=== PATIENT | female | born 1955 | race Two or more races ===

== ENCOUNTER 2017-11-14 21:20 | Inpatient (IN) | payer OTHER ==
[~2017-11-14] VITALS: Ht 165.1 cm; Wt 56.8 kg
--- NOTE | 2017-11-14 21:42 | NUR ---
BIB [facility] FROM [facility] C/C GROUND LEVEL SLIP AND FALL. PT GOT UP FROM SITTING POSITION TO GO TO BATHROOM AND FELL. NO KO. PT AA/OX4 DROWSY. "I REMEMBER FALLING AND BEING HELPED UP." SWELLING ,BRUISING, BLEEDING TO NOSE. PAIN TO LT WRIST AND LT KNEE. MINOR ABRASIONS TO BILATERAL KNEES. CIRCULATION, MOTOR, AND SENSATION PRESENT X4. NO S/S OF SOB. NAD. VSS. AWAITING MD ORDERS.
--- NOTE | 2017-11-14 21:51 | NUR ---
XRAY AT BEDSIDE
--- NOTE | 2017-11-14 22:10 | NUR ---
PT BROUGHT TO CT
[2017-11-14] MEDS ORDERED: IV NS 0.9% 500 ML BAG IV ONE (22:30)
[2017-11-14 22:44] LABS: BASOPHILS # (AUTO) 0.1 /CMM (0.0-0.2); EOSINOPHILS % (AUTO) 1.3 % (0.0-6.0); HEMATOCRIT 38 % (33-45); HEMOGLOBIN 12.9 g/dL (11.5-14.8); LYMPHOCYTES # (AUTO) 2.2 /CMM (0.8-4.8); LYMPHOCYTES % (AUTO) 25.5 % (20.0-44.0); MEAN CORPUSCULAR HEMOGLOBIN 30 PG (26.0-33.0); MEAN CORPUSCULAR HGB CONC 34 g/dl (31.0-36.0); MEAN CORPUSCULAR VOLUME 89 fL (82-100); MONOCYTES # (AUTO) 0.3 /CMM (0.1-1.30); NEUTROPHILS # (AUTO) 5.8 /CMM (1.8-8.9); NEUTROPHILS % (AUTO) 68.2 % (43.0-81.0); PLATELET COUNT (AUTO) 293 /CMM (150-450); RDW COEFFICIENT OF VARIATION 13.8 (11.5-15.0); RED BLOOD CELL COUNT(AUTO) 4.32 MIL/uL (4.0-5.2); WHITE BLOOD COUNT (AUTO) 8.5 K/uL (4.3-11.0)
[2017-11-14 22:50] LABS: INR 0.88 (0.85-1.15)
[2017-11-14 22:55] LABS: CALCIUM, SERUM 8.8 mg/dL (8.5-10.1); CARBON DIOXIDE 28 mmol/L (21-32); CHLORIDE 105 mmol/L (98-107); CREATININE 0.8 mg/dL (0.6-1.3); GLUCOSE 87 mg/dL (74-106); POTASSIUM 3.8 mmol/L (3.5-5.1); SODIUM SERUM 141 mmol/L (136-145); UREA NITROGEN, BLOOD 24 mg/dL (7-18)
[2017-11-14 23:01] LABS: ALANINE AMINOTRANSFERASE 30 U/L (12-78); ALBUMIN 3.4 g/dL (3.4-5.0); ALKALINE PHOSPHATASE 82 U/L (46-116); ASPARTATE AMINOTRANSFERASE 19 U/L (15-37); BILIRUBIN,DIRECT 0.1 mg/dL (0.0-0.2); BILIRUBIN,TOTAL 0.3 mg/dL (0.2-1.0); TOTAL PROTEIN, SERUM 6.7 g/dL (6.4-8.2)
[2017-11-14 23:03] LABS: TROPONIN I < 0.017 ng/mL (0.00-0.056)
--- NOTE | 2017-11-14 23:06 | NUR ---
PAGED BARRY LISA
--- NOTE | 2017-11-14 23:48 | NUR ---
CALLED NURSE SUP FOR TELE BED
[2017-11-15] MEDS ORDERED: HYDROMORPHONE 1 MG/1 ML DISP.SYRIN IV ONE
--- NOTE | 2017-11-15 00:03 | NUR ---
REPORT GIVEN TO ROLAND CALDERA
[2017-11-15] MEDS ORDERED: HYDROMORPHONE INJ 2 MG/ML DISP.SYRIN ONE (00:04)
--- NOTE | 2017-11-15 00:11 | NUR ---
PT TRANSPORTED WITH STABLE CONDITION. NAD. GONZALEZ.
[2017-11-15 00:40] VITALS: BP 118/68
[2017-11-15] MEDS ORDERED: Z GUARD REMEDY 2 OZ OINT TP PRN (01:00)
[2017-11-15] MEDS ORDERED: MAGNESIUM HYDROXIDE 30 ML UDC PO PRN (01:00)
[2017-11-15] MEDS ORDERED: ONDANSETRON HCL/PF 4 MG/2 ML VIAL IVP PRN (01:00)
[2017-11-15] MEDS ORDERED: HYDROCODONE/APAP 5/325MG 1 EACH TABLET PO PRN (01:00)
[2017-11-15] MEDS ORDERED: MORPHINE SULFATE INJ 2 MG/ML DISP.SYRIN IV PRN (01:00)
[2017-11-15] MEDS ORDERED: ACETAMINOPHEN 325 MG TABLET PO PRN (01:00)
[2017-11-15] MEDS ORDERED: ZOLPIDEM TARTRATE 5 MG TABLET PO PRN (01:00)
[2017-11-15] MEDS: IV NS 0.9% 1,000 ML IV PRN ×2 (01:27→21:35)
[2017-11-15 04:00] VITALS: BP 90/62
[2017-11-15 06:23] LABS: BASOPHILS # (AUTO) 0.1 /CMM (0.0-0.2); BASOPHILS % (AUTO) 0.7 % (0.0-2.0); EOSINOPHILS % (AUTO) 1.7 % (0.0-6.0); HEMATOCRIT 35 % (33-45); LYMPHOCYTES # (AUTO) 2.5 /CMM (0.8-4.8); LYMPHOCYTES % (AUTO) 32.4 % (20.0-44.0); MEAN CORPUSCULAR HEMOGLOBIN 31 PG (26.0-33.0); MEAN CORPUSCULAR HGB CONC 34 g/dl (31.0-36.0); MEAN CORPUSCULAR VOLUME 89 fL (82-100); MONOCYTES # (AUTO) 0.4 /CMM (0.1-1.30); NEUTROPHILS # (AUTO) 4.6 /CMM (1.8-8.9); NEUTROPHILS % (AUTO) 60.2 % (43.0-81.0); PLATELET COUNT (AUTO) 265 /CMM (150-450); RDW COEFFICIENT OF VARIATION 13.6 (11.5-15.0); RED BLOOD CELL COUNT(AUTO) 3.94 MIL/uL (4.0-5.2); WHITE BLOOD COUNT (AUTO) 7.6 K/uL (4.3-11.0)
[2017-11-15 06:46] LABS: CALCIUM, SERUM 8.3 mg/dL (8.5-10.1); CREATININE 0.7 mg/dL (0.6-1.3); MAGNESIUM 1.9 mg/dL (1.8-2.4); PHOSPHORUS 3.9 mg/dL (2.5-4.9); POTASSIUM 3.8 mmol/L (3.5-5.1)
--- NOTE | 2017-11-15 07:30 | NUR ---
INITIAL NOTES: BIB [facility] FROM [facility] C/C GROUND LEVEL SLIP AND FALL. PT GOT UP FROM SITTING POSITION TO GO TO BATHROOM AND FELL. NO KO. PT AA/OX2 AND SLOW OF SPEECH." SWELLING ,BRUISING, LACERATIONS TO NOSE. MINOR ABRASIONS TO BILATERAL KNEES. PT BILATERAL RIB FRACTURES PER X-RAY REPORT. CIRCULATION, MOTOR, AND SENSATION PRESENT X4. NO S/S OF SOB. NAD. PT PASSED SWOLLOW TEST WITHOUT CHOKING OR COUGHING. WILL ORDER DIET BED IN LOW POSITION LOCKED. [employer] JUNIOR SYSTEMS ADMINISTRATOR CHARLES NEXT TO PT.
[2017-11-15 08:00] VITALS: BP_SYST 120; BP_SYST 88; BP_DIAS 49; BP_DIAS 90
[2017-11-15] MEDS ORDERED: DOCU100C36 PO (08:05)
[2017-11-15] MEDS ORDERED: RANI150T8 PO (08:05)
[2017-11-15] MEDS ORDERED: PANT40TA4 PO (08:05)
[2017-11-15] MEDS ORDERED: P EP PO (08:05)
[2017-11-15] MEDS ORDERED: METO-356 PO (08:05)
[2017-11-15] MEDS ORDERED: TRAM50TA2 PO (08:05)
[2017-11-15] MEDS ORDERED: ASPI-1169 PO (08:05)
[2017-11-15] MEDS ORDERED: IBUP-1955 PO (08:05)
[2017-11-15] MEDS ORDERED: ONDA4TAB8 PO (08:05)
[2017-11-15] MEDS: ASPIRIN 81 MG TAB.CHEW PO SCH ×3 (08:12→15:15)
[2017-11-15 12:00] VITALS: BP_SYST 100; BP_SYST 104; BP_DIAS 57; BP_DIAS 63
--- NOTE | 2017-11-15 15:08 | NUR ---
Patient is alert, resides at [facility] [phone] and currently on service with [facility] - palliative care [phone]. Spoke with nurse Kimberly,stated patient has hx of multiple falls at the previous sober living.She ambulates with a walker and utilized wheelchair for community mobility. Current plan is to return to [facility] once discharge. Addendum: 11/15/17 at 1508 by JASON RUBIO RN Amended: Links added.
[2017-11-15 16:00] VITALS: BP 108/62
--- NOTE | 2017-11-15 18:05 | NUR ---
CLOSING NOTES: PT ALERT AND ORIENTED X2 PULLED OFF ARM SLING ON LEFT ARM TWICE BOTH TINES REWRAPPED. THEN PT STARTED TO BITE IV HAND MUFFINS APPLIED PT HAD 4 DIAPER CHANGES REMAINS OF NS AT 60 ML/HR. CALLED FOR ORTHO CONSULT TODAY. BED IN LOW POSITION AND LOCKED.
[2017-11-15 20:00] VITALS: BP 115/71
[2017-11-16] VITALS: BP_SYST 115; BP_SYST 130; BP_DIAS 43; BP_DIAS 81
[2017-11-16 04:00] VITALS: BP 113/67
[2017-11-16 08:00] VITALS: BP 123/71
--- NOTE | 2017-11-16 08:00 | NUR ---
DIAMOND RN NOTES RECEIVED BEDSIDE REPORT FROM AM NURSE. PATIENT IS A/OX1, CONFUSED. ON ROOM AIR WITH SATURATION OF 100%. NO SOB, NO DISCOMFORT, NO COMPLAIN OF PAIN NOTED AT THIS TIME. PATIENT IS ON ENVIRONMENTAL COMPLIANCE ENGINEER SR 66. LEFT FOREARM SPLINTER IN PLACE, CIRCULATION CHECKED, RIGHT FOREARM 20G IV LINE IS PATIENT, INTACT. ALL SAFETY MEASURES ARE IMPLEMENTED, BED IN LOW, LOCKED POSITION, CALL LIGHT IN REACH. WILL CONT. TO MONITOR.
--- NOTE | 2017-11-16 12:02 | NUR ---
YASSINE NOTES HD IS OVER , 2L WAS OUT. MAGNESIUM SULFATE WILL BE STARTED NOW. Addendum: 11/16/17 at 1205 by BROOKLYN PURDY RN PLEASE DISREGARD THE NOTE ABOVE ABOUT HD. WRONG PATIENT.
--- NOTE | 2017-11-16 15:05 | NUR ---
DIAMOND RN NOTES PATIENT'S REPORT IS GIVEN TO [facility] RN YAMILET PHONE # . PATIENT IS IN STABLE CONDITION AND BEING TRANSPORTED VIA AMBULANCE TO [facility]. PATIENT IS A/O X1, CONFUSED, ON RA WITH SPO2 OF 100%, B/P 117/68, HR-65, T-97.8, NO SOB, NO DISTRESS NOTED DURING MY SHIFT. ALL NEEDS ARE ATTENDED. DISCHARGE TEACHING IS PROVIDED. IV LINE AND WRIST BAND REMOVED.
== END 2017-11-16 15:19 | DRG 135 ==
LOC: ER 21:22 → TELE1 11-15 00:10 → MEDSG1 11-16 10:01
PROVIDERS: ADMIT Nurse Practitioner Acute Care; ATTEND Nurse Practitioner Acute Care
DX: S22.43XA Multiple fractures of ribs, bilateral, initial encounter for closed fracture (principal); I10 Essential (primary) hypertension; E04.1 Nontoxic single thyroid nodule; I25.10 Atherosclerotic heart disease of native coronary artery without angina pectoris; Z86.73 Personal history of transient ischemic attack (TIA), and cerebral infarction without residual deficits; S02.2XXA Fracture of nasal bones, initial encounter for closed fracture; W01.0XXA Fall on same level from slipping, tripping and stumbling without subsequent striking against object, initial encounter; Y92.121 Bathroom in nursing home as the place of occurrence of the external cause; R91.1 Solitary pulmonary nodule
CPT/HCPCS: 36415; 70450-TC; 70486-TC; 71045-TC; 71250-TC; 72170-TC; 73110; 73130-TC; 76536-TC; 80048-TC; 80061-TC; 80076-TC; 83735-TC; 84100-TC; 84443-TC; 84484-TC; 85025-TC; 85730-TC; 87081-TC; A4606; J1170; J7030; J7040; Z7610